=== PATIENT | female | born 1965 | race Two or more races ===

== ENCOUNTER → 2024-08-07 12:55 | Outpatient (CLI) | payer OTHER | END | disposition home or self-care (01) | LOC: NUCLEAR 12:55 | PROVIDERS: ATTEND Obstetrics & Gynecology Obstetrics | DX: M81.0 Age-related osteoporosis without current pathological fracture (principal) ==

== ENCOUNTER 2024-08-07 13:37 | Outpatient (CLI) | payer OTHER | END 2024-08-07 13:40 | disposition home or self-care (01) | LOC: MAMO-SONO 13:37 | PROVIDERS: ATTEND Obstetrics & Gynecology Obstetrics | DX: M54.50 Low back pain, unspecified (principal); N60.11 Diffuse cystic mastopathy of right breast; N60.12 Diffuse cystic mastopathy of left breast; Z12.31 Encounter for screening mammogram for malignant neoplasm of breast; N85.00 Endometrial hyperplasia, unspecified; E04.9 Nontoxic goiter, unspecified ==